=== PATIENT | female | born 1980 | race Caucasian/White ===

== ENCOUNTER 2016-10-27 16:34 | Observation (INO) | payer SELFPAY ==
[2016-10-27] MEDS ORDERED: Sodium Chloride 0.9% 1,000 ML IV STA (16:55)
[2016-10-27] MEDS ORDERED: Iohexol 240 (50 ml) PO ONE (16:55)
--- NOTE | 2016-10-27 16:56 | ED PDOC ---
HPI: Abdomen Time Seen by Provider: 10/27/16 16:44 Chief Complaint (Nursing): Abdominal Pain Chief Complaint (Provider): Abd pain History Per: Patient History/Exam Limitations: no limitations Onset/Duration Of Symptoms: Days () Outside of [place] travel?: No Current Symptoms Are (Timing): Still Present Additional Complaint(s): Abd pain. Diffuse. Started RLQ and then moved all over. No nausea, vomit, diarrhea. Is constant. No weakness, headaches, dizziness. No fever. No new food or drinks. No back pain, dysuria. Has IBS and ovarian cysts. Past Medical History Reviewed: Nursing Documentation, Vital Signs Vital Signs: Last Vital Signs Temp 98.8 F 10/27/16 16:36 Pulse 75 10/27/16 16:36 Resp 18 10/27/16 16:36 BP 119/71 10/27/16 16:36 Pulse Ox 100 10/27/16 22:23 - Medical History PMH: Anxiety, Depression Other PMH: IBS; ovarian cyst - Surgical History Other surgeries: terminated 1 month ago - Family History Family History: States: Unknown Family Hx - Social History Current smoker - smoking cessation education provided: No Alcohol: None Drugs: Denies - Home Medications Home Medications: Ambulatory Orders Medication Instructions Recorded Albuterol HFA [Ventolin HFA 90 1 - 2 puff IH Q6 PRN #1 inhaler 09/11/15 mcg/actuation (8 g)] Azithromycin [Zithromax Z-Jose Armando] 250 mg PO DAILY #1 tab 09/11/15 Promethazine HCl/Codeine 10 ml PO Q6 PRN #6 oz 09/11/15 [Prometh-Codein 6.25-10 mg/5 ml] traMADol [Ultram] 50 mg PO Q6 #16 tab 09/12/15 - Allergies Allergies/Adverse Reactions: Allergies Allergy/AdvReac Type Severity Reaction Status Date / Time No Known Allergies Allergy Verified 10/27/16 16:36 Review of Systems ROS Statement: Except As Marked, All Systems Reviewed And Found Negative Gastrointestinal: Positive for: Abdominal Pain Physical Exam - Reviewed Nursing Documentation Reviewed: Yes Vital Signs Reviewed: Yes - Physical Exam Appears: Positive for: Non-toxic, No Acute Distress Head Exam: Positive for: ATRAUMATIC, NORMAL INSPECTION, NORMOCEPHALIC Skin: Positive for: Normal Color, Warm, DRY Eye Exam: Positive for: EOMI, Normal appearance, PERRL ENT: Positive for: Normal ENT Inspection Neck: Positive for: Normal, Painless ROM Cardiovascular/Chest: Positive for: Regular Rate, Rhythm Respiratory: Positive for: CNT, Normal Breath Sounds Gastrointestinal/Abdominal: Positive for: Bowel Sounds, Soft, Tenderness ( diffuse mild) Back: Positive for: Normal Inspection. Negative for: L CVA Tenderness, R CVA Tenderness Extremity: Positive for: Normal ROM Neurologic/Psych: Positive for: Alert, Oriented - Laboratory Results Result Diagrams: 10/27/16 16:59 10/27/16 16:59 Urine dip results: Negative for: Leukocyte Esterase, Nitrate - ECG O2 Sat by Pulse Oximetry: 100 Pulse Ox Interpretation: Normal ED OBSERVATION Date of observation admission: 10/27/16 Time of observation admission: 17:01 - Observation admission statement Patient is being placed in observation because:: abd pain - Goals of Observation Goals of observation are:: abd pain eval - Progress Note Progress Note: 10/27/16 21:56 IMPRESSION: 1. Mild fatty infiltration of the liver. 2. Mildly thickened fundal endometrium measuring at least 12 mm. 3. The left ovary is adjacent to a segment of proximal sigmoid with slight induration extending from/to both of these structures of uncertain origin. Findings may reflect left ovarian inflammation or possibly short segment nonspecific sigmoid colitis. No diverticula are identified to suggest diverticulitis. The left ovary is not enlarged and demonstrates some vascular enhancement. 4. Trace fluid in the cul-de-sac which is nonspecific and physiologic in amount. Will get US transvag considering CT findings to eval ovary issues. 10/27/16 23:50 2350: Stable. Possible colitis. US with no acute findings of ovary. Tolerates po. AAOx3. Pain free. Disposition - Clinical Impression Clinical Impression: Colitis - Patient ED Disposition Is Patient to be Admitted: No Counseled Patient/Family Regarding: Studies Performed, Diagnosis, Need For Followup, Rx Given - Disposition Disposition: Routine/Home Disposition Time: 23:51 Condition: STABLE - POA Present On Arrival: None
[2016-10-27 17:04] LABS: BASO # 0.1 K/uL (0.0-0.2); BASO % 0.6 % (0.0-2.0); EOS # 0.2 K/uL (0.0-0.7); EOS % 1.8 % (0.0-4.0); LYMPH # 2.8 K/uL (1.0-4.3); LYMPH % 29.1 % (20.0-40.0); MEAN CELL VOLUME 96.3 fl (81.0-99.0); MEAN CORPUSCULAR HEMOGLOBIN 32.4 pg (27.0-31.0); MEAN CORPUSCULAR HGB CONC 33.6 g/dL (33.0-37.0); MEAN PLATELET VOLUME 9.2 fl (7.2-11.7); MONO # 0.5 K/uL (0.0-0.8); MONO % 5.5 % (0.0-10.0); NRBC % 0.1 % (0.0-0.0); RBC 4.31 Mil/uL (3.80-5.20); RED CELL DISTRIBUTION WIDTH 12.9 % (11.5-14.5); WHITE BLOOD COUNT 9.5 K/uL (4.8-10.8)
[2016-10-27 17:13] LABS: ALB/GLOB RATIO 1.4 (1.0-2.1); ALBUMIN 4.2 g/dL (3.5-5.0); ALT/SGPT 22 U/L (9-52); AST/SGOT 20 U/L (14-36); BLOOD UREA NITROGEN 12 mg/dl (7-17); CALCIUM 9.2 mg/dL (8.4-10.2); GFR AFRICAN-AMERICAN > 60; GFR NON-AFRICAN AMERICAN > 60; LIPASE 58 U/L (23-300)
[2016-10-27] MEDS ORDERED: Iohexol 300 100 ML IJ ONE (19:16)
[2016-10-27] MEDS ORDERED: Sodium Chloride 0.9% 50 ML IV ONE (19:16)
[2016-10-27] MEDS ORDERED: Morphine 4 MG/ML VIAL IV ONE (22:13)
[2016-10-28 00:09] VITALS: BP 96/56; PULSE 56; RESP 24; TEMP 98.5; O2SAT 96
--- NOTE | 2016-10-28 08:36 | US ---
HISTORY: eval for torsion and toa COMPARISON: None available. TECHNIQUE: Transvaginal pelvic ultrasound FINDINGS: UTERUS: Measures 7.7 x 5.7 x 3.3 cm. Anteverted. ENDOMETRIUM: Heterogeneous endometrium measures approximately 1.3 cm in diameter. CERVIX: Nabothian cysts. RIGHT OVARY: Measures 2.4 x 2.1 x 1.8 cm. Blood flow is demonstrated. LEFT OVARY: Measures 3.1 x 2.6 x 2.0 cm. Blood flow is demonstrated. FREE FLUID: No significant free fluid noted. OTHER FINDINGS: None. IMPRESSION: Heterogeneous endometrium measures approximately 1.3 cm in diameter ; correlate with stage of menstrual cycle. Blood products/clot suspected. Short-term follow-up suggested. Preliminary impression was provided by virtual radiologic.
--- NOTE | 2016-10-28 08:53 | CT ---
PROCEDURE: CT Abdomen and Pelvis with oral and IV contrast. HISTORY: abd pain COMPARISON: None available. TECHNIQUE: Contiguous axial images of the abdomen and pelvis. Oral and IV contrast was administered. Coronal and Sagittal reformats generated and reviewed. Contrast dose: 98 cc Omnipaque Radiation dose: Total exam DLP = 781.69 mGy-cm. This CT exam was performed using one or more of the following dose reduction techniques: Automated exposure control, adjustment of the mA and/or kV according to patient size, and/or use of iterative reconstruction technique. FINDINGS: LOWER THORAX: No visible consolidation, pleural effusion, or pneumothorax. LIVER: Heterogeneous hepatic parenchyma. Hypoattenuation of the liver compatible with hepatic steatosis. Hepatic hypodensities measuring up to 13 mm within the posterior right hepatic lobe with Hounsfield unit measurement of approximately 10 HU, possibly cysts. GALLBLADDER AND BILE DUCTS: Unremarkable. PANCREAS: Unremarkable. SPLEEN: Unremarkable. ADRENALS: Unremarkable. KIDNEYS AND URETERS: The kidneys enhance symmetrically. No hydronephrosis or obstructing renal calculus. BLADDER: The urinary bladder appears unremarkable. REPRODUCTIVE: Uterus is present. The low-attenuation fundal endometrium appears thickened measuring at the least 12 mm. The left ovary is noted adjacent to the proximal sigmoid colon with slight induration involving the adjacent short segment of colon as well as the left ovary. The left ovary is not enlarged and enhancement is noted. APPENDIX: The appendix appears within normal limits of caliber. No secondary signs of acute appendicitis. BOWEL: The stomach is nondistended. The bowel loops appear within normal limits of caliber without evidence of intestinal obstruction. Mild wall thickening and induration involving a short segment of the sigmoid colon. PERITONEUM: Trace pelvic free fluid. No definite free air. LYMPH NODES: No bulky lymphadenopathy identified. VASCULATURE: No aortic aneurysm. BONES: No acute osseous abnormality is detected. OTHER FINDINGS: Small fat containing umbilical hernia. IMPRESSION: Heterogeneous appearance of the hepatic parenchyma. Probable hepatic steatosis. Hepatic hypodensities measuring up to approximately 13 mm, possibly cysts. Suggest further evaluation with ultrasound or cross-sectional imaging if indicated. Mild inflammatory changes noted within the left lower quadrant involving the left ovary as well as proximal sigmoid colon with associated slight induration. Colitis is suspected however alternatives including ovarian inflammation cannot be excluded. No associated diverticula are evident to suggest acute diverticulitis. The left ovary is not enlarged and demonstrates evidence of vascular enhancement. Trace fluid in the cul-de-sac, nonspecific and possibly physiologic. Preliminary impression was provided by virtual radiologic.
== END 2016-10-27 23:55 | disposition home or self-care (01) ==
LOC: H.ER 16:34 → H.EROBSV 16:55
PROVIDERS: ADMIT Emergency Medicine; ATTEND Emergency Medicine
DX: K52.9 Noninfective gastroenteritis and colitis, unspecified (principal); K58.9 Irritable bowel syndrome, unspecified; K76.0 Fatty (change of) liver, not elsewhere classified; F32.9 Major depressive disorder, single episode, unspecified; F41.9 Anxiety disorder, unspecified; N83.209 Unspecified ovarian cyst, unspecified side
CPT/HCPCS: 74177; 76830; 80053; 81025; 83690; 85025; 99284; G0378; J1885; J7040; Q9966; Q9967

== ENCOUNTER 2017-05-19 13:19 | Emergency (ER) | payer OTHER ==
[2017-05-19 13:51] VITALS: BP 102/71; PULSE 99; RESP 18; TEMP 99.4; O2SAT 96
--- NOTE | 2017-05-19 14:48 | ED PDOC ---
HPI: CCC, URI, Sore Throat Time Seen by Provider: 05/19/17 13:52 Chief Complaint (Nursing): Flu-like Symptoms Chief Complaint (Provider): Sore Throat and Cough History Per: Patient History/Exam Limitations: no limitations Onset/Duration Of Symptoms: Hrs Current Symptoms Are (Timing): Still Present Location Of Pain: Throat Sick Contacts (Context): Family Member(s) (parents) Associated Symptoms: Fever, Sore Throat, Cough, Nasal Congestion, Vomiting Ear Symptoms: Bilateral: None Severity: None Additional Complaint(s): 36 year old female presents to the ED complaining of cough, sore throat, congestion, body aches and fever which began last night. The patient reports that both of her parents have similar symptoms and are currently taking tamiflu although they were not tested for the flu. Patient also reports that she had 1 episode of vomiting and immediately after developed epigastric pain. Denies shortness of breath, chest pain, diarrhea, rash, hematemesis. PMD: FAMILY PROVIDER,NO Past Medical History Reviewed: Historical Data, Nursing Documentation, Vital Signs Vital Signs: Last Vital Signs Temp 99.4 F 05/19/17 13:47 Pulse 99 H 05/19/17 13:47 Resp 18 05/19/17 13:47 BP 102/71 05/19/17 13:47 Pulse Ox 96 05/19/17 14:53 - Medical History PMH: Anxiety, Depression - Surgical History Surgical History: No Surg Hx - Family History Family History: States: Unknown Family Hx - Social History Current smoker - smoking cessation education provided: Yes (Smoker Currrent Status Unknown) Ex-Smoker (has not smoked in the last 12 months): Yes Alcohol: Other Drugs: Denies - Home Medications Home Medications: Ambulatory Orders Medication Instructions Recorded Albuterol HFA [Ventolin HFA 90 1 - 2 puff IH Q6 PRN #1 inhaler 09/11/15 mcg/actuation (8 g)] Azithromycin [Zithromax Z-Jose Armando] 250 mg PO DAILY #1 tab 09/11/15 Promethazine HCl/Codeine 10 ml PO Q6 PRN #6 oz 09/11/15 [Prometh-Codein 6.25-10 mg/5 ml] traMADol [Ultram] 50 mg PO Q6 #16 tab 09/12/15 Ciprofloxacin HCl [Cipro] 500 mg PO BID 7 Days tab 10/27/16 Ibuprofen [Motrin] 600 mg PO TID 7 Days tab 10/27/16 Metronidazole [Flagyl] 500 mg PO TID 7 Days tablet 10/27/16 Benzonatate [Tessalon Perle] 100 mg PO Q8 PRN #30 capsule 05/19/17 Famotidine [Pepcid] 20 mg PO DAILY PRN #10 tab 05/19/17 Ondansetron ODT [Zofran ODT] 4 mg PO TID #20 odt 05/19/17 Oseltamivir Phosphate [Tamiflu] 75 mg PO BID #10 capsule 05/19/17 - Allergies Allergies/Adverse Reactions: Allergies Allergy/AdvReac Type Severity Reaction Status Date / Time No Known Allergies Allergy Verified 10/27/16 16:36 Review of Systems Constitutional: Positive for: Fever, Other (body aches) ENT: Positive for: Nose Congestion, Throat Pain Cardiovascular: Negative for: Chest Pain Respiratory: Positive for: Cough. Negative for: Shortness of Breath Gastrointestinal: Positive for: Vomiting. Negative for: Diarrhea, Hematemesis Skin: Negative for: Rash Physical Exam - Reviewed Nursing Documentation Reviewed: Yes Vital Signs Reviewed: Yes - Physical Exam Appears: Positive for: Non-toxic, No Acute Distress Skin: Positive for: Normal Color, Warm, Dry. Negative for: Rash Eye Exam: Positive for: Normal appearance, EOMI, PERRL ENT: Positive for: Normal ENT Inspection. Negative for: Nasal Congestion, Tonsillar Exudate, Tonsillar Swelling Cardiovascular/Chest: Positive for: Regular Rate, Rhythm, Chest Non Tender. Negative for: Tachycardia Respiratory: Positive for: Normal Breath Sounds. Negative for: Wheezing, Respiratory Distress Gastrointestinal/Abdominal: Positive for: Normal Exam, Bowel Sounds, Soft. Negative for: Tenderness, Guarding, Rebound Neurologic/Psych: Positive for: Alert, Oriented, Gait - ECG O2 Sat by Pulse Oximetry: 96 (RA) Pulse Ox Interpretation: Normal Medical Decision Making Medical Decision Makin Initial Impression 36 y/o female presenting with sore throat, cough, congestion, body aches and fever Initial Plan: * Upreg * Pepcid 20mg PO * Zofran 4mg PO * Reevaluation Documented by Deborah Mullins acting as a scribe for Je Salamanca PA-C. All medical record entries made by the Scribe were at my direction and personally dictated by me. I have reviewed the chart and agree that the record accurately reflects my personal performance of the history, physical exam, medical decision making, and the department course for this patient. I have also personally directed, reviewed, and agree with the discharge instructions and disposition. Disposition - Clinical Impression Clinical Impression: Influenza-like symptoms - Patient ED Disposition Is Patient to be Admitted: No Counseled Patient/Family Regarding: Studies Performed - Disposition Disposition: Routine/Home Disposition Time: 14:40 Condition: STABLE Prescriptions: Benzonatate [Tessalon Perle] 100 mg PO Q8 PRN #30 capsule PRN Reason: Cough Famotidine [Pepcid] 20 mg PO DAILY PRN #10 tab PRN Reason: Dyspepsia Ondansetron ODT [Zofran ODT] 4 mg PO TID #20 odt Oseltamivir Phosphate [Tamiflu] 75 mg PO BID #10 capsule Instructions: Influenza (ED) Forms: [facility] ([place]o), [facility] ED School/Work Excuse Print Language: VATICAN CITIZEN - POA Present On Arrival: None
== END 2017-05-19 15:54 | disposition home or self-care (01) ==
LOC: H.ER 13:19
DX: J11.1 Influenza due to unidentified influenza virus with other respiratory manifestations (principal); F17.200 Nicotine dependence, unspecified, uncomplicated

== ENCOUNTER 2017-06-28 18:34 | Emergency (ER) | payer OTHER ==
[2017-06-28 19:26] VITALS: BP 102/62; PULSE 86; RESP 14; TEMP 98.3; O2SAT 100
[2017-06-28] MEDS ORDERED: Sodium Chloride 0.9% 1,000 ML IV STA (19:53)
--- NOTE | 2017-06-28 19:56 | ED PDOC ---
HPI: Female Pain Time Seen by Provider: 06/28/17 19:35 Chief Complaint (Nursing): Abdominal Pain Chief Complaint (Provider): pelvic pain History Per: Patient History/Exam Limitations: no limitations Onset/Duration Of Symptoms: Days (today) Current Symptoms Are (Timing): Still Present Additional Complaint(s): Pt. with pelvic cramps. Vaginal bleeding trace. Preg approx 8 wks. No dysuria , weakness, headaches, dizzines, chest pain, dyspnea. No obgyn. Past Medical History Reviewed: Nursing Documentation, Vital Signs Vital Signs: Last Vital Signs Temp 98.3 F 06/28/17 19:22 Pulse 86 06/28/17 19:22 Resp 14 06/28/17 19:22 BP 102/62 06/28/17 19:22 Pulse Ox 100 06/28/17 19:22 - Medical History PMH: Anxiety, Depression - Surgical History Surgical History: - Family History Family History: States: Unknown Family Hx - Social History Alcohol: None Drugs: Denies - Home Medications Home Medications: Ambulatory Orders Medication Instructions Recorded Albuterol HFA [Ventolin HFA 90 1 - 2 puff IH Q6 PRN #1 inhaler 09/11/15 mcg/actuation (8 g)] Azithromycin [Zithromax Z-Jose Armando] 250 mg PO DAILY #1 tab 09/11/15 Promethazine HCl/Codeine 10 ml PO Q6 PRN #6 oz 09/11/15 [Prometh-Codein 6.25-10 mg/5 ml] traMADol [Ultram] 50 mg PO Q6 #16 tab 09/12/15 Ciprofloxacin HCl [Cipro] 500 mg PO BID 7 Days tab 10/27/16 Ibuprofen [Motrin] 600 mg PO TID 7 Days tab 10/27/16 Metronidazole [Flagyl] 500 mg PO TID 7 Days tablet 10/27/16 Benzonatate [Tessalon Perle] 100 mg PO Q8 PRN #30 capsule 05/19/17 Famotidine [Pepcid] 20 mg PO DAILY PRN #10 tab 05/19/17 Ondansetron ODT [Zofran ODT] 4 mg PO TID #20 odt 05/19/17 Oseltamivir Phosphate [Tamiflu] 75 mg PO BID #10 capsule 05/19/17 - Allergies Allergies/Adverse Reactions: Allergies Allergy/AdvReac Type Severity Reaction Status Date / Time No Known Allergies Allergy Verified 06/28/17 19:26 Review of Systems ROS Statement: Except As Marked, All Systems Reviewed And Found Negative Genitourinary Female: Positive for: Vaginal Bleeding, Pelvic Pain Physical Exam - Reviewed Nursing Documentation Reviewed: Yes Vital Signs Reviewed: Yes - Physical Exam Appears: Positive for: Non-toxic, No Acute Distress Head Exam: Positive for: ATRAUMATIC, NORMAL INSPECTION, NORMOCEPHALIC Skin: Positive for: Normal Color, Warm, DRY Eye Exam: Positive for: EOMI, Normal appearance, PERRL ENT: Positive for: Normal ENT Inspection Neck: Positive for: Normal, Painless ROM, Supple Cardiovascular/Chest: Positive for: Regular Rate, Rhythm Respiratory: Positive for: CNT, Normal Breath Sounds Gastrointestinal/Abdominal: Positive for: Bowel Sounds, Soft, Tenderness (mild tender across lower) Back: Positive for: Normal Inspection. Negative for: L CVA Tenderness, R CVA Tenderness Extremity: Positive for: Normal ROM Neurologic/Psych: Positive for: Alert, Oriented - Laboratory Results Interpretation Of Abn Labs: elevated bhcg - ECG O2 Sat by Pulse Oximetry: 100 Pulse Ox Interpretation: Normal - Progress ED Course And Treament: 2242: Stable. AAOx3. Pain free. Tolerated PO. Spoke with Dr. Knapp. Wants pt. to fu with clinic. Likely demise. Pt. aware. Will fu with obgyn for repeat blood work. Disposition - Clinical Impression Clinical Impression: Threatened - Patient ED Disposition Is Patient to be Admitted: No - Disposition [facility] Disposition: Routine/Home Disposition Time: 22:44 Condition: STABLE Additional Instructions: Return if not better in 3 days. See your obgyn for repeat blood work to see if there is a demise. Instructions: Threatened Miscarriage Forms: [employer] (Haitian)
--- NOTE | 2017-06-28 21:14 | US ---
EXAM: US , Transvaginal CLINICAL HISTORY: 36 years old, female; Pain; Other: Abd pain; Gestational age or lmp: See u ws; ; Additional info: Preg and pain TECHNIQUE: Real-time transvaginal obstetrical ultrasound of the maternal pelvis and a first trimester with image documentation. Transvaginal imaging was used for better evaluation of the fetus and adnexa. COMPARISON: No relevant prior studies available. FINDINGS: Gestation: Irregular gestational sac. No yolk sac. pole. No heartbeat detected. [place]-rump length of 1.1 cm correlating with gestational age of 7 weeks 1 day. Mean sac diameter of 3.6 cm, correlating with gestational age of 8 weeks 5 days. Uterus/cervix: No subchorionic hemorrhage. No cervical dilatation or effacement. Ovaries: Not visualized. No adnexal masses. Free fluid: No significant free fluid. IMPRESSION: 1. Findings compatible with demise.
[2017-06-28 21:29] LABS: BASO # 0.1 K/uL (0.0-0.2); BASO % 1.1 % (0.0-2.0); EOS # 0.3 K/uL (0.0-0.7); EOS % 2.5 % (0.0-4.0); HEMOGLOBIN 12.8 g/dL (12.0-16.0); LYMPH # 2.4 K/uL (1.0-4.3); LYMPH % 22.6 % (20.0-40.0); MEAN CELL VOLUME 97.1 fl (81.0-99.0); MEAN CORPUSCULAR HEMOGLOBIN 33.1 pg (27.0-31.0); MEAN CORPUSCULAR HGB CONC 34.1 g/dL (33.0-37.0); MEAN PLATELET VOLUME 9.7 fl (7.2-11.7); MONO # 0.6 K/uL (0.0-0.8); MONO % 5.2 % (0.0-10.0); NEUT # 7.3 K/uL (1.8-7.0); NEUT % 68.6 % (50.0-75.0); NRBC % 0.1 % (0.0-0.0); RBC 3.87 Mil/uL (3.80-5.20); WHITE BLOOD COUNT 10.6 K/uL (4.8-10.8)
[2017-06-28 21:43] LABS: ALB/GLOB RATIO 1.3 (1.0-2.1); ALBUMIN 3.8 g/dL (3.5-5.0); ALT/SGPT 26 U/L (9-52); AST/SGOT 13 U/L (14-36); BLOOD UREA NITROGEN 12 mg/dl (7-17); CALCIUM 9.3 mg/dL (8.4-10.2); GFR AFRICAN-AMERICAN > 60; GFR NON-AFRICAN AMERICAN > 60
== END 2017-06-28 22:58 | disposition home or self-care (01) ==
LOC: H.ER 18:34
DX: O20.0 Threatened abortion (principal); Z3A.08 8 weeks gestation of pregnancy; F32.9 Major depressive disorder, single episode, unspecified; F41.9 Anxiety disorder, unspecified
CPT/HCPCS: 76817; 80053; 84702; 85025; 86850; 86900; 99283; J7040